=== PATIENT | male | born 1960 | race Caucasian/White ===

== ENCOUNTER → 2017-03-08 | Outpatient (CLI) | payer OTHER ==
--- NOTE | ~2017-03-08 | ST ---
Unit #: [id number] #: [id number] Patient: JERILYN CHAMBERLAIN [id number] [facility]. [address] [address] [id number] O MR#: [id number] NAME: JERILYN CHAMBERLAIN : 1960 SEX: M STUDY DATE/TIME: 03/08/2017 UNIT: [facility] ROOM: STUDY DESCRIPTION: Attending Physician: Grant Andrew M.D. Referring Physician: Grant Andrew M.D. Primary Care Physician: Josh Tomlin M.D. CARDIOLOGY REPORT EXAM EKG portion of exercise Cardiolite stress test. REASON FOR EXAM History of coronary artery disease, myocardial infarction, PCI and stents. DISCUSSION Baseline EKG reveals sinus rhythm with a ventricular rate of 65 beats per minute. Nonspecific ST-T wave changes noted in the inferior leads. The patient exercised on a treadmill according to Tyrell protocol for 9 minutes and 57 seconds, achieving a workload of 10.8 METs. The maximal heart rate was 141 beats per minute which represents 86% of the maximal age predicted heart rate. Maximal blood pressure was 186/93 mmHg. There were no complaints of chest pain. There was a short burst of what appears to be SVT. There were occasional PVCs. There were no ST or T-wave changes to suggest ischemia. The patient's blood pressure was elevated but improved in recovery. IMPRESSION 1. Negative EKG portion of exercise Cardiolite stress test. 2. There were no complaints of chest pain. 3. There was an occasional PVC as well as what appears to be short run of SVT. 4. There were no ST or T wave changes to suggest ischemia. Please correlate with Cardiolite images. Dictated by... Mary Ann Fregoso APRN for Hannah Matthew TD: 03/08/2017 16:58 JOB #: [id number] Unit #: [id number] #: [id number] Patient: JERILYN CHAMBERLAIN CARDIOLOGY REPORT Page 1 of 1 X CARDIOLOGY REPORT
--- NOTE | ~2017-03-08 | TH ---
Unit #: [id number] #: [id number] Patient: JERILYN CHAMBERLAIN [id number] [address] [address] [id number] O MR#: [id number] NAME: JERILYN CHAMBERLAIN : 1960 SEX: M STUDY DATE/TIME: 03/08/2017 UNIT: [facility] ROOM: STUDY DESCRIPTION: Attending Physician: Grant Andrew M.D. Referring Physician: Grant Andrew M.D. Primary Care Physician: Josh Tomlin M.D. CARDIOLOGY REPORT EXAM Exercise Cardiolite stress test, nuclear portion. PROCEDURE Using technetium 99m labeled Cardiolite, rest and stress SPECT images were obtained. Multiple SPECT images were obtained in various views including horizontal and vertical long axis and short axis views of the left ventricle. Images were obtained by gated SPECT method. The patient was administered 10.6 mCi of Cardiolite at rest. Patient was administered 31.1 mCi of Cardiolite at peak exercise. Total exercise time is 9 minutes and 57 seconds. On the stress images, there is a small area of mild decreased isotope activity inferiorly. The rest images show normal perfusion. Comparing rest and stress images, there is a small area of stress-induced ischemia involving the inferior wall of the left ventricle. The left ventricular ejection fraction is calculated to be 49%. There is inferolateral wall hypokinesis seen. CONCLUSION 1. Suspicion for small area of stress-induced ischemia involving the inferior wall of the left ventricle. 2. The left ventricular ejection fraction is calculated to be 49%. 3. There is inferolateral hypokinesis noted. 4. Clinical correlation is requested. Dictated by... Hannah Matthew TD: 03/08/2017 14:33 JOB #: [id number] Unit #: [id number] #: [id number] Patient: JERILYN CHAMBERLAIN CARDIOLOGY REPORT Page 1 of 1 X Yolanda Sargent MD <ELECTRONICALLY SIGNED> 05/11/17 [id number] CARDIOLOGY REPORT
== END | disposition home or self-care (01) ==
LOC: CNUC 08:21
DX: I25.10 Atherosclerotic heart disease of native coronary artery without angina pectoris (principal); I10 Essential (primary) hypertension; I25.2 Old myocardial infarction; Z98.61 Coronary angioplasty status
CPT/HCPCS: 78452; 93017; A9500